=== PATIENT | female | born 1955 | race Hispanic/Latino ===

== ENCOUNTER 2016-09-01 14:31 | Emergency (ER) | payer SELFPAY ==
[2016-09-01 14:39] VITALS: BMI 23.8
[2016-09-01 14:43] VITALS: TEMP 97.6
--- NOTE | 2016-09-01 15:30 | ED PDOC ---
Arrival/HPI - General Chief Complaint: GI Problem Time Seen by Provider: 09/01/16 15:19 Historian: Patient, Spouse - History of Present Illness Narrative History of Present Illness (Text): 09/01/16 15:25 61 y/o female, pmh including htn, no psychiatric history, nkda, here at the ER as tearful, c/o crying and decrease in appetize and nausea and vomiting for 1 week. Pt. stated that her mother about 1 week ago, been drinking alcohol daily and not eating as much, feels nauseous when excessive drinking, no night sweat, no weight loss, no homicidal or suicidal ideation, no auditory or visual hallucination, refused psychiatric evaluation, no chest pain or shortness of breath, no palpitation, no dizziness, no other medical or psychological complaints. Past Medical History - Provider Review Nursing Documentation Reviewed: Yes - Infectious Disease Hx of Infectious Diseases: None - Tetanus Immunization Tetanus Immunization: Unknown - Cardiac Hx Cardiac Disorders: Yes Hx Hypertension: Yes - Pulmonary Hx Respiratory Disorders: No - Neurological Hx Neurological Disorder: No - HEENT Hx HEENT Disorder: No - Renal Hx Renal Disorder: No - Endocrine/Metabolic Hx Endocrine Disorders: No - Hematological/Oncological Hx Blood Disorders: No - Integumentary Hx Dermatological Disorder: No - Musculoskeletal/Rheumatological Hx Musculoskeletal Disorders: Yes Hx Back Pain: Yes - Gastrointestinal Hx Gastrointestinal Disorders: No - Genitourinary/Gynecological Hx Genitourinary Disorders: No - Psychiatric Hx Psychophysiologic Disorder: No Hx Depression: No Hx Emotional Abuse: No Hx Physical Abuse: No Hx Substance Use: No - Past Surgical History Past Surgical History: No Previous - Suicidal Assessment Feels Threatened In Home Enviroment: No Family/Social History - Physician Review Nursing Documentation Reviewed: Yes Family/Social History: Unknown Family HX Smoking Status: Heavy Smoker > 10 Cigarettes Daily Hx Alcohol Use: No Hx Substance Use: No Hx Substance Use Treatment: No Allergies/Home Meds Allergies/Adverse Reactions: Allergies No Known Allergies Allergy (Verified 09/01/16 14:39) Review of Systems - Review of Systems Constitutional: Other (decrease appetize). absent: Fatigue, Fevers Eyes: absent: Vision Changes, Photophobia, Eye Pain ENT: absent: Hearing Changes, Tinnitus, TMJ Pain, Voice Changes, Sore Throat, Rhinorrhea, Epistaxis, Sinus Congestion Respiratory: absent: SOB, Cough, Sputum, Wheezing Cardiovascular: absent: Chest Pain, Palpitations, Edema, Calf Pain, [place], Orthopnea, Syncope Gastrointestinal: Nausea, Vomiting. absent: Abdominal Pain, Stool Changes, Constipation, Diarrhea, Appetite Changes, Hematochezia, Hematemesis, Anorexia, Food Intolerance Genitourinary Female: absent: Dysuria, Frequency, Hematuria, Urine Output Changes, Vaginal Bleeding, Vaginal Discharge Musculoskeletal: absent: Arthralgias, Back Pain, Neck Pain, Joint Swelling, Myalgias Skin: absent: Rash, Pruritis, Skin Lesions, Laceration, Abscess, Ulcer, Cellulitis Neurological: absent: Headache, Focal Weakness, Gait Changes, Facial Droop, Disequilibrium, Seizure Hemo/Lymphatic: absent: Adenopathy Psychiatric: Anxiety Physical Exam Vital Signs Reviewed: Yes Vital Signs Temp Pulse Resp BP Pulse Ox 09/01/16 14:39 97.6 F 92 H 16 176/79 H 97 Temperature: Afebrile Blood Pressure: Hypertensive Pulse: Regular Respiratory Rate: Normal Appearance: Positive for: Well-Appearing, Non-Toxic, Comfortable Pain Distress: None Mental Status: Positive for: Alert and Oriented X 3 - Systems Exam Head: Present: Atraumatic, Normocephalic Pupils: Present: PERRL Extroacular Muscles: Present: EOMI Conjunctiva: Present: Normal Mouth: Present: Moist Mucous Membranes Neck: Present: Normal Range of Motion Respiratory/Chest: Present: Clear to Auscultation, Good Air Exchange. No: Respiratory Distress, Accessory Muscle Use Cardiovascular: Present: Regular Rate and Rhythm, Normal S1, S2. No: Murmurs Abdomen: Present: Normal Bowel Sounds. No: Tenderness, Distention, Peritoneal Signs, Rebound, Guarding Back: Present: Normal Inspection Upper Extremity: Present: Normal Inspection. No: Cyanosis, Edema Lower Extremity: Present: Normal Inspection. No: Edema Neurological: Present: GCS=15, Speech Normal, Motor Func Grossly Intact, Gait Normal, Memory Normal Skin: Present: Warm, Dry, Normal Color. No: Rashes Lymphatic: No: Cervical Adenopathy Psychiatric: Present: Alert, Oriented x 3, Normal Insight, Normal Concentration , Anxious Medical Decision Making ED Course and Treatment: 09/01/16 15:34 -labs/lipase/ua/uds -ekg/chest x-ray/CT abdomen -IVF/pepcid/zofran/ativan -observe and reassess 09/01/16 17:54 -EKG: NSR @ 84 BPM, no ST elevation or depression, no T wave inversion, non specific T wave inversion on lead III. -Chest xray show no active disease 09/01/16 18:47 -EKG: NSR @ 84 BPM, no ST elevation or depression, no T wave inversion, non specific T wave inversion on lead III. -Chest xray show no active disease -CT abdomen and pelvis show: degenerative joint disease, no bowel obstruction, 13x5mm liver lesion, diverticulosis without diverticulitis. -Labs are non-significant except etoh 311. I ordered banana bag already with protonix po. -Pt. is walking around with normal gait and posture, clinically sobered and aox4. -I discussed labs/radiology results and offer the PES but the patient refused. Pt verbally understanding of all labs and radiology results. -Pt. does -Pt. wishes to be discharged home as she is asymptomatic now, no fine tremors or tongue fasciculation, no history of alcohol abuse, no history of withdrawal seizure. -Discharge home with [facility], stop drinking alcohol, follow up with your own pmd Dr. Marcum and GI within 2 days, return to the ER for any new or worsening signs or symptoms. - Lab Interpretations Lab Results: 09/01/16 15:40 09/01/16 15:40 Lab Results 09/01/16 18:24: Urine Color Yellow, Urine Appearance Clear, Urine pH 6.5, Ur Specific [place] <= 1.005, Urine Protein Negative, Urine Glucose (UA) Negative, Urine Ketones Negative, Urine Blood Moderate H, Urine Nitrate Negative, Urine Bilirubin Negative, Urine Urobilinogen 0.2, Ur Leukocyte Esterase Negative, Urine RBC Pending, Urine WBC Pending 09/01/16 15:40: WBC 6.2, RBC 4.35, Hgb 14.3, Hct 41.1, MCV 94.5, MCH 32.9, MCHC 34.8, RDW 14.3, Plt Count 325, MPV 8.3, Gran % 53.2, Lymph % (Auto) 36.6 H, [place] % (Auto) 6.8 H, Eos % (Auto) 3.1, Baso % (Auto) 0.3, Gran # 3.30, Lymph # 2.3, [place] # 0.4, Eos # 0.2, Baso # 0.02, Sodium 142, Potassium 3.8, Chloride 104 , Carbon Dioxide 27, Anion Gap 15, BUN 22 H, Creatinine 0.5, Est GFR ( Amer) > 60, Est GFR (Non-Af Amer) > 60, Random Glucose 102, Calcium 8.9, Magnesium 2.1, Total Bilirubin 0.4, AST 33, ALT 19, Alkaline Phosphatase 65, Lactate Dehydrogenase 521, Total Creatine Kinase 94, Troponin I < 0.01, Total Protein 6.9, Albumin 4.1, Globulin 2.8, Albumin/Globulin Ratio 1.5, Lipase 89, Salicylates < 1 L, Acetaminophen < 10.0 L, Alcohol, Quantitative 311 H* I have reviewed the lab results: Yes Interpretation: Abnormal lab values (alcohol 311) - RAD Interpretation Radiology Orders: 09/01/16 15:31 ABD & PELVIS IV CONTRAST ONLY [CT] Stat 09/01/16 16:19 CHEST PORTABLE [RAD] Stat CT ABDOMEN/PELVIS: PROCEDURE: CT Abdomen and Pelvis with contrast HISTORY: nausea/vomiting COMPARISON: None available TECHNIQUE: Contrast dose: 94 cc Omnipaque 350 Radiation dose: Total exam DLP = 488.28 mGy-cm. FINDINGS: LOWER THORAX: No visible consolidation, pleural effusion, or pneumothorax. Small hiatal hernia. LIVER: 13 x 5 mm hypodensity within the left hepatic lobe, indeterminate. Diffuse hypoattenuation of the liver compatible with hepatic steatosis. GALLBLADDER AND BILE DUCTS: Unremarkable. PANCREAS: Unremarkable. SPLEEN: Unremarkable. ADRENALS: Unremarkable. KIDNEYS AND URETERS: Punctate nonobstructing right renal calculi. No hydronephrosis or obstructing calculi identified. 12 mm low-density lesion, left kidney, possibly cyst. Additional too small to characterize bilateral renal hypodensities ; statistically likely cysts. VASCULATURE: Dense atherosclerotic calcifications of the aorta. No aortic aneurysm. BOWEL: The stomach is nondistended. Lack of oral contrast limits evaluation for bowel pathology. Most of the colon is decompressed, limiting evaluation for focal or diffuse pathology. Mild wall thickening likely exaggerated by under distention of the colon. No associated inflammatory changes evident. No evidence of bowel obstruction. Scattered diverticula without CT evidence of acute diverticulitis. APPENDIX: The appendix appears within normal limits of caliber. No secondary signs of acute appendicitis. PERITONEUM: No significant free fluid. No definite free air. LYMPH NODES: No bulky lymphadenopathy identified. BLADDER: Unremarkable. REPRODUCTIVE: The uterus is present. BONES: Scoliosis. Multilevel degenerative changes. 5 mm anterolisthesis of L3 on L4. Endplate sclerosis and vacuum disc phenomenon involving L3 through L5. OTHER FINDINGS: None. IMPRESSION: Most of the colon is decompressed, limiting evaluation for focal or diffuse pathology. Mild wall thickening likely exaggerated by under distention of the colon. No associated inflammatory changes evident. Correlate clinically. Scattered diverticulosis without CT evidence of acute diverticulitis. Hepatic steatosis. 13 x 5 mm hypodense lesion within the left hepatic lobe, indeterminate. Suggest further evaluation with ultrasound. Punctate nonobstructing right renal calculi. No evidence of hydronephrosis or obstructing calculi bilaterally. Probable left renal cyst. Additional too small to characterize renal hypodensities bilaterally ; statistically likely cysts. Additional findings as above. Senior Property Accountant: Radiologist - EKG Interpretation EKG Interpretation (Text): 09/01/16 17:52 NSR @ 84 BPM, no ST elevation or depression, no T wave inversion, non specific T wave inversion on lead III. Interpreted by ED Physician: Yes Type: 12 lead EKG Comparison: No previous EKG avail. - Medication Orders Current Medication Orders: Multivitamins/Vitamin C 10 ml/Thiamine HCl 100 mg/ Folic Acid 1 mg/ Dextrose 1, 011.2 mls @ 1,000 mls/hr IV .Q1H1M ONE Stop: 09/01/16 18:56 Discontinued Medications Alprazolam (Xanax) 0.5 mg PO STAT STA PRN Reason: Protocol Stop: 09/01/16 15:32 Famotidine (Pepcid) 20 mg IVP STAT STA Stop: 09/01/16 15:32 Last Admin: 09/01/16 15:49 Dose: 20 MG IVP Administration Document 09/01/16 15:49 SE (Rec: 09/01/16 15:49 SE [id number]) Charges for Administration # of IVP Administrations 1 Sodium Chloride (Sodium Chloride 0.9%) 1,000 mls @ 999 mls/hr IV .Q1H1M STA Stop: 09/01/16 16:31 Last Admin: 09/01/16 15:47 Dose: 999 MLS/HR eMAR Start Stop Document 09/01/16 15:47 SE (Rec: 09/01/16 15:47 SE [id number]) Intravenous Solution Start Date 09/01/16 Start Time 15:47 Iohexol (Omnipaque 350 100 Ml) Confirm Administered Dose 350 mg .ROUTE .STK-MED ONE Stop: 09/01/16 16:33 Lorazepam (Ativan) 1 mg IVP ONCE ONE PRN Reason: Protocol Stop: 09/01/16 15:40 Last Admin: 09/01/16 15:49 Dose: 1 MG Behavioural Document 09/01/16 15:49 SE (Rec: 09/01/16 15:50 SE [id number]) Maintenance Maintenance Dose No Nonmedicinal Nonmedicinal Interventions See nurse's notes Comment w/d s/s Behavior Behavior for Medication: Anxiety Behavior Comment w/d s/s IVP Administration Document 09/01/16 15:49 SE (Rec: 09/01/16 15:50 SE [id number]) Charges for Administration # of IVP Administrations 1 Ondansetron HCl (Zofran Inj) 4 mg IVP STAT STA Stop: 09/01/16 15:32 Last Admin: 09/01/16 15:49 Dose: 4 MG IVP Administration Document 09/01/16 15:49 SE (Rec: 09/01/16 15:49 SE [id number]) Charges for Administration # of IVP Administrations 1 - PA / MAP CLERK / Resident Statement MD/DO has reviewed & agrees with the documentation as recorded. Disposition/Present on Arrival - Present on Arrival Any Indicators Present on Arrival: No History of DVT/PE: No History of Uncontrolled Diabetes: No Urinary Catheter: No History of Decub. Ulcer: No History Surgical Site Infection Following: None - Disposition Have Diagnosis and Disposition been Completed?: Yes Diagnosis: Alcohol intoxication, Depression (emotion), Hepatic steatosis, Liver lesion, Diverticulosis, Degenerative joint disease Disposition: HOME/ ROUTINE Disposition Time: 18:37 Patient Plan: Discharge Patient Problems: Current Active Problems Problem Status Diagnosed Alcohol intoxication Acute Degenerative joint disease Acute Depression (emotion) Acute Diverticulosis Acute Hepatic steatosis Acute Liver lesion Acute Condition: IMPROVED Additional Instructions: Discharge home with prilosec, stop drinking alcohol, follow up with your own pmd Dr. Marcum and GI within 2 days, return to the ER for any new or worsening signs or symptoms. Prescriptions: Omeprazole Magnesium [Prilosec Otc] 20 mg PO DAILY #10 tcp Referrals: Jeffry Alvarado MD [Primary Care Provider] - Follow up with primary Gregorio GREEN,MD Corey [Medical Doctor] - Follow up with primary Forms: WORK NOTE
[2016-09-01] MEDS ORDERED: Sodium Chloride 0.9% 1,000 ML IV STA (15:31)
[2016-09-01 15:54] LABS: ADD MANUAL DIFF? NO
[2016-09-01 15:59] LABS: BASO # 0.02 K/mm3 (0.0-2.0); BASO % 0.3 % (0.0-3.0); EOS # 0.2 (0.0-0.7); EOS % 3.1 % (1.5-5.0); GRAN % 53.2 % (50.0-68.0); HEMATOCRIT 41.1 % (36.0-48.0); LYMPH # 2.3 (1.2-3.4); LYMPH % 36.6 % (22.0-35.0); MEAN CELL VOLUME 94.5 fL (80.0-105.0); MEAN CORPUSCULAR HEMOGLOBIN 32.9 pg (25.0-35.0); MEAN CORPUSCULAR HGB CONC 34.8 g/dl (31.0-37.0); MEAN PLATELET VOLUME 8.3 fl (7.0-11.0); MONO # 0.4 (0.1-0.6); MONO % 6.8 % (1.0-6.0); PLATELET COUNT 325 10^3/uL (120.0-450.0); RED CELL DISTRIBUTION WIDTH 14.3 % (11.5-14.5); WHITE BLOOD COUNT 6.2 10^3/ul (4.5-11.0)
[2016-09-01 16:16] LABS: ALB/GLOB RATIO 1.5 (1.1-1.8); ALKALINE PHOSPHATASE 65 U/L (38-133); ALT/SGPT 19 U/L (7-56); AST/SGOT 33 U/L (15-39); BILIRUBIN,TOTAL 0.4 mg/dL (0.2-1.3); BLOOD UREA NITROGEN 22 mg/dL (7-21); CALCIUM 8.9 mg/dL (8.4-10.5); CARBON DIOXIDE 27 mmol/L (21-33); CHLORIDE 104 mmol/L (98-107); GFR AFRICAN-AMERICAN > 60; GLUCOSE,RANDOM 102 mg/dL (70-110); LIPASE 89 U/L (23-300); MAGNESIUM 2.1 mg/dL (1.7-2.2); POTASSIUM 3.8 mmol/L (3.6-5.0); SODIUM 142 mmol/L (132-148); TOTAL PROTEIN 6.9 g/dL (5.8-8.3)
[2016-09-01] MEDS ORDERED: Iohexol 350 MG/100 ML VIAL ONE (16:32)
[2016-09-01 16:41] LABS: TROPONIN I < 0.01 ng/mL
[2016-09-01] MEDS ORDERED: Multivitamin (MVI) 10 ML, Thiamine 100 MG, Folic Acid 1 MG in Dextrose 5% In Water 1,00... IV ONE (17:56)
--- NOTE | 2016-09-01 18:30 | CT ---
PROCEDURE: CT Abdomen and Pelvis with contrast HISTORY: nausea/vomiting COMPARISON: None available TECHNIQUE: Contrast dose: 94 cc Omnipaque 350 Radiation dose: Total exam DLP = 488.28 mGy-cm. FINDINGS: LOWER THORAX: No visible consolidation, pleural effusion, or pneumothorax. Small hiatal hernia. LIVER: 13 x 5 mm hypodensity within the left hepatic lobe, indeterminate. Diffuse hypoattenuation of the liver compatible with hepatic steatosis. GALLBLADDER AND BILE DUCTS: Unremarkable. PANCREAS: Unremarkable. SPLEEN: Unremarkable. ADRENALS: Unremarkable. KIDNEYS AND URETERS: Punctate nonobstructing right renal calculi. No hydronephrosis or obstructing calculi identified. 12 mm low-density lesion, left kidney, possibly cyst. Additional too small to characterize bilateral renal hypodensities ; statistically likely cysts. VASCULATURE: Dense atherosclerotic calcifications of the aorta. No aortic aneurysm. BOWEL: The stomach is nondistended. Lack of oral contrast limits evaluation for bowel pathology. Most of the colon is decompressed, limiting evaluation for focal or diffuse pathology. Mild wall thickening likely exaggerated by under distention of the colon. No associated inflammatory changes evident. No evidence of bowel obstruction. Scattered diverticula without CT evidence of acute diverticulitis. APPENDIX: The appendix appears within normal limits of caliber. No secondary signs of acute appendicitis. PERITONEUM: No significant free fluid. No definite free air. LYMPH NODES: No bulky lymphadenopathy identified. BLADDER: Unremarkable. REPRODUCTIVE: The uterus is present. BONES: Scoliosis. Multilevel degenerative changes. 5 mm anterolisthesis of L3 on L4. Endplate sclerosis and vacuum disc phenomenon involving L3 through L5. OTHER FINDINGS: None. IMPRESSION: Most of the colon is decompressed, limiting evaluation for focal or diffuse pathology. Mild wall thickening likely exaggerated by under distention of the colon. No associated inflammatory changes evident. Correlate clinically. Scattered diverticulosis without CT evidence of acute diverticulitis. Hepatic steatosis. 13 x 5 mm hypodense lesion within the left hepatic lobe, indeterminate. Suggest further evaluation with ultrasound. Punctate nonobstructing right renal calculi. No evidence of hydronephrosis or obstructing calculi bilaterally. Probable left renal cyst. Additional too small to characterize renal hypodensities bilaterally ; statistically likely cysts. Additional findings as above.
[2016-09-01 18:33] LABS: PH,URINE 6.5 (4.7-8.0); URINE APPEARANCE CLEAR (CLEAR); URINE BILIRUBIN NEGATIVE (NEGATIVE); URINE BLOOD MODERATE (NEGATIVE); URINE COLOR YELLOW (YELLOW); URINE GLUCOSE (UA) NEGATIVE (NEGATIVE); URINE KETONE NEGATIVE (NEGATIVE); URINE LEUKOCYTE ESTERASE NEGATIVE Leu/uL (NEGATIVE); URINE PROTEIN NEGATIVE mg/dL (<30 mg/dL); URINE UROBILINOGEN 0.2 E.U./dL (<1 E.U./dL)
[2016-09-01 18:38] LABS: URINE WBC NEGATIVE /hpf (0-6)
[2016-09-01] MEDS ORDERED: Pantoprazole 40 mg EC Tab PO STA (18:47)
--- NOTE | 2016-09-01 19:48 | CARD ---
APPROVED REPORT EKG Measurement Heart [id number] <Conclusion> Normal sinus rhythm Abnormal QRS-T angle, consider primary T wave abnormality Abnormal ECG
[2016-09-01 19:49] VITALS: BP 150/86; PULSE 75; RESP 17; O2SAT 92
--- NOTE | 2016-09-02 08:14 | RAD ---
HISTORY: MEDICAL CLEARANCE COMPARISON: No prior. FINDINGS: LUNGS: No active pulmonary disease. PLEURA: No significant pleural effusion identified, no pneumothorax apparent. CARDIOVASCULAR: Normal. OSSEOUS STRUCTURES: No significant abnormalities. VISUALIZED UPPER ABDOMEN: Normal. OTHER FINDINGS: None. IMPRESSION: No active disease.
== END 2016-09-01 19:55 | disposition home or self-care (01) ==
LOC: ED 14:31
DX: F10.129 Alcohol abuse with intoxication, unspecified (principal); F32.9 Major depressive disorder, single episode, unspecified; K76.0 Fatty (change of) liver, not elsewhere classified; K57.30 Diverticulosis of large intestine without perforation or abscess without bleeding; K76.9 Liver disease, unspecified; M19.90 Unspecified osteoarthritis, unspecified site; I10 Essential (primary) hypertension
CPT/HCPCS: 71010; 74177; 80053; 81001; 82550; 83615; 83690; 83735; 84484; 85025; 93005; 96374; 96375; 99284; G0480; J2060; J2405; J3411; J7040; J7070; Q9967